=== PATIENT | female | born 1965 | race Two or more races ===

== ENCOUNTER 2021-09-16 14:09 | Emergency (ER) | payer OTHER ==
[~2021-09-16] VITALS: Ht 152.4 cm; Wt 53.5 kg
[2021-09-16] MEDS ORDERED: SYNTHROID88 MCG PO (14:29)
== END 2021-09-16 18:35 | disposition home or self-care (01) ==
LOC: ER 14:09
DX: N23 Unspecified renal colic (principal); E03.9 Hypothyroidism, unspecified; Z91.013 Allergy to seafood; Z20.822 Contact with and (suspected) exposure to COVID-19

== ENCOUNTER 2024-08-20 09:02 | Outpatient (CLI) | payer OTHER ==
[~2024-08-20 09:02] MED LIST: SYNTHROID88 MCG PO
== END 2024-08-20 09:15 | disposition home or self-care (01) ==
LOC: SONOGRAMA 09:02
PROVIDERS: ATTEND Physical Medicine & Rehabilitation
DX: M25.512 Pain in left shoulder (principal)